=== PATIENT | male | born 1950 | race Two or more races ===

== ENCOUNTER 2017-02-04 15:08 | Emergency (ER) | payer MEDICAID ==
[~2017-02-04] VITALS: Ht 172.7 cm; Wt 77.1 kg
[~2017-02-04 15:08] MED LIST: AZITHROMYCIN250 MG ORAL; GUAIFENESIN-CO118 M1 ORAL; NKM; SULFAMETHOXAZO480 ML ORAL
--- NOTE | 2017-02-04 15:53 | Diagnostic Imaging Report ---
Indication: Headache. Code stroke Technique: Contiguous 5 mm thick transaxial imaging of the head obtained in a Siemens Sensation [address] scanner. Soft tissue and bone windows generated. Automatic Exposure Control was utilized. Total Dose length Product (DLP): [address] Dose Index Volume (CTDIvol): 70.38, 0.15 mGy Comparison: none Findings: The ventricles are moderately dilated. The degree of dilatation is disproportionate to the degree of atrophy present, which is mild. Findings could be related to a more centralized atrophy of the brain. The possibility of normal pressure hydrocephalus or communicating hydrocephalus should be considered. Please correlate clinically. There is no mass effect or edema. There is no evidence of hemorrhage. There is no midline shift. Mild periventricular low-attenuation demonstrated. This may be due to chronic small vessel disease. No abnormal extra-axial collections are identified. Osseous structures are unremarkable. Impression: Possible normal pressure hydrocephalus. Please correlate clinically. Generalized atrophy the brain. The CT scanner at [facility] is accredited by the [employer] and the scans are performed using dose optimization techniques as appropriate to a performed exam including Automatic Exposure control.
[2017-02-04 16:00] VITALS: BP 146/80
[2017-02-04 16:09] LABS: BASOPHILS % (AUTO) 1.9 % (0.0-2.0); EOSINOPHILS % (AUTO) 2.4 % (0.0-3.0); HEMATOCRIT 50.1 % (42.0-52.0); LYMPHOCYTES % (AUTO) 31.6 % (20.0-45.0); MEAN CORPUSCULAR VOLUME 98 FL (80-99); MONOCYTES % (AUTO) 8.7 % (1.0-10.0); NEUTROPHILS % (AUTO) 55.4 % (45.0-75.0); PLATELET COUNT 309 K/UL (150-450); RED BLOOD COUNT 5.11 M/UL (4.70-6.10); RED CELL DISTRIBUTION WIDTH 11.1 % (11.6-14.8); WHITE BLOOD COUNT 8.8 K/UL (4.8-10.8)
[2017-02-04 16:40] LABS: ANION GAP 11 mmol/L (5-15); BLOOD UREA NITROGEN 17 mg/dL (7-18); CALCIUM 9.5 MG/DL (8.5-10.1); CARBON DIOXIDE 28 MMOL/L (21-32); CHLORIDE 101 MMOL/L (98-107); CREATININE 1.2 MG/DL (0.55-1.30); POTASSIUM 4.5 MMOL/L (3.5-5.1); SODIUM 140 MMOL/L (136-145)
[2017-02-04] MEDS ORDERED: Morphine Sulfate 4mg/ml Inj IVP ONE (16:45)
[2017-02-04] MEDS ORDERED: DEXAMETHASONE2 MG PO (17:25)
[2017-02-04 17:47] VITALS: BP_SYST 120; BP_SYST 146; BP_DIAS 65; BP_DIAS 80
[2017-02-04 17:50] VITALS: BP 120/65
--- NOTE | 2017-02-04 23:15 | Emergency Room Report ---
History of Present Illness General Chief Complaint: Headache Source: Patient Present Illness HPI Patient is a a 66-year-old male who presented after increased headache. The patient had a gradual onset of symptoms the past 2-3 days. Patient reported having increased difficulty with ambulation. He reportedly had prior history of a neck tumor associated with some hydrocephalus. He had prior surgical resection of tumor. Patient denied any fever. He denied any weakness to his extremities. Allergies: Uncoded Allergies: IV CONTRAST (Allergy, Anaphylaxis, 03/09/13) Patient History Past Medical History: see triage record Reviewed Nursing Documentation: PMH: Agreed, PSxH: Agreed Nursing Documentation-PM Past Medical History: No Stated History Hx Hypertension: Yes Hx Asthma: Yes Hx Diabetes: Yes Hx Cancer: No Hx Gastrointestinal Problems: No - BPH Hx Neurological Problems: Yes - HEADACHES Review of Systems All Other Systems: negative except mentioned in HPI Physical Exam Vital Signs Date Time Temp Pulse Resp B/P (MAP) Pulse Ox O2 Delivery O2 Flow Rate FiO2 02/04/17 15:14 97.5 86 16 131/87 98 Room Air Sp02 EP Interpretation: reviewed, normal General Appearance: normal inspection, well appearing, no apparent distress, alert, GCS 15, non-toxic Head: atraumatic ENT: normal ENT inspection, hearing grossly normal, normal voice Neck: normal inspection, full range of motion, supple, no bony tend Respiratory: normal inspection, lungs clear, normal breath sounds, no respiratory distress, no retraction, no wheezing Cardiovascular #1: regular rate, rhythm, no edema Gastrointestinal: normal inspection, normal bowel sounds, non tender, soft, no guarding, no hernia Genitourinary: no CVA tenderness Musculoskeletal: normal inspection, back normal, normal range of motion Neurologic: normal inspection, alert, oriented x3, responsive, 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 Differential diagnoses included but was not limited to skull fracture, subarachnoid hemorrhage, meningitis, aneurysm, mass lesion, intracranial hemorrhage.Because of complexity of patient's case laboratory testing and imaging studies were ordered. CT imaging of the head read by radiology showed hydrocephalus. Patient was given IV medications for headache. Patient was advised followup with his neurosurgeon for comparison of CT images The patient is advised to follow up with primary care doctor in 1-2 days. Patient is advised to return if any worsening condition or if any changes in status that are concerning. Labs Test 02/04/17 15:30 White Blood Count 8.8 K/UL (4.8-10.8) Red Blood Count 5.11 M/UL (4.70-6.10) Hemoglobin 16.0 G/DL (14.2-18.0) Hematocrit 50.1 % (42.0-52.0) Mean Corpuscular Volume 98 FL (80-99) Mean Corpuscular Hemoglobin 31.4 PG (27.0-31.0) Mean Corpuscular Hemoglobin Concent 32.0 G/DL (32.0-36.0) Red Cell Distribution Width 11.1 % (11.6-14.8) Platelet Count 309 K/UL (150-450) Mean Platelet Volume 9.0 FL (6.5-10.1) Neutrophils (%) (Auto) 55.4 % (45.0-75.0) Lymphocytes (%) (Auto) 31.6 % (20.0-45.0) Monocytes (%) (Auto) 8.7 % (1.0-10.0) Eosinophils (%) (Auto) 2.4 % (0.0-3.0) Basophils (%) (Auto) 1.9 % (0.0-2.0) Sodium Level 140 MMOL/L (136-145) Potassium Level 4.5 MMOL/L (3.5-5.1) Chloride Level 101 MMOL/L (98-107) Carbon Dioxide Level 28 MMOL/L (21-32) Anion Gap 11 mmol/L (5-15) Blood Urea Nitrogen 17 mg/dL (7-18) Creatinine 1.2 MG/DL (0.55-1.30) Estimat Glomerular Filtration Rate > 60 mL/min (>60) Glucose Level 124 MG/DL (74-106) Calcium Level 9.5 MG/DL (8.5-10.1) Last Vital Signs Date Time Temp Pulse Resp B/P (MAP) Pulse Ox O2 Delivery O2 Flow Rate FiO2 02/04/17 17:50 97.5 68 18 120/65 98 Room Air Status: improved Disposition: HOME, SELF-CARE Condition: Stable Scripts Dexamethasone* (DECADRON*) 2 Mg Tablet 4 MG PO DAILY, #4 TAB Prov: Sharif Hitchcock 02/04/17 Patient Instructions: Headache and Arthritis Additional Instructions: CT shows hydrocephalus. Follow up with your Neurosurgeon for recheck in 1-2 days. Return if any worsening. Sharif Hitchcock Feb 04, 2017 23:15
== END 2017-02-04 17:51 | disposition home or self-care (01) ==
LOC: EMR 15:52
DX: G91.9 Hydrocephalus, unspecified (principal); G31.9 Degenerative disease of nervous system, unspecified; E11.9 Type 2 diabetes mellitus without complications; J45.909 Unspecified asthma, uncomplicated; D49.2 Neoplasm of unspecified behavior of bone, soft tissue, and skin; I10 Essential (primary) hypertension; R51 Headache; Z91.041 Radiographic dye allergy status
CPT/HCPCS: 36415; 70450; 80048; 85025; 96374; 96375; 99284; J0780; J2270

== ENCOUNTER 2017-09-24 14:06 | Emergency (ER) | payer MEDICAID, MEDICARE ==
[~2017-09-24] VITALS: Ht 170.2 cm; Wt 72.6 kg
[~2017-09-24 14:06] MED LIST changes: +DEXAMETHASONE2 MG PO
[2017-09-24] MEDS ORDERED: METFORMIN HCL1000 M1 ORAL (14:23)
[2017-09-24 14:26] VITALS: BP 131/81
[2017-09-24] MEDS ORDERED: Ketorolac 60mg Inj IM ONE (14:30)
[2017-09-24] MEDS ORDERED: LIDOCAINE700 M1 TP (14:31)
[2017-09-24] MEDS ORDERED: ROBAXIN-750750 MG PO (14:31)
--- NOTE | 2017-09-24 14:45 | Emergency Room Report ---
History of Present Illness General Chief Complaint: Lower Back Pain or Injury Source: Patient, Medical Record Present Illness HPI Patient is a 67-year-old male who presented after increased low back pain. Patient reports having increased pain after attempting to bend forward and subsequently standing up. The patient had previous history of intermittent low back pain. He had last exacerbation several years ago. The patient had not been having any fever or vomiting. He denies any dysuria. He denies any leg pain or numbness.The patient previous CT imaging at this facility and was noted to have previous diagnoses of L5 spondylolysis. The patient was having increased sharp pain. This is reportedly worse with extension. Allergies: Uncoded Allergies: IV CONTRAST (Allergy, Anaphylaxis, 03/09/13) Patient History Past Medical History: see triage record Reviewed Nursing Documentation: PMH: Agreed; PSxH: Agreed Nursing Documentation-PMH Past Medical History: No History, Except For Hx Cardiac Problems: No Hx Hypertension: Yes Hx Pacemaker: No Hx Asthma: Yes Hx COPD: No Hx Diabetes: Yes Hx Cancer: No Hx Gastrointestinal Problems: No - BPH Hx Dialysis: No History Of Psychiatric Problem: No Hx Neurological Problems: Yes - HEADACHES Hx Cerebrovascular Accident: No Hx Seizures: No Review of Systems All Other Systems: negative except mentioned in HPI Physical Exam Vital Signs Date Time Temp Pulse Resp B/P (MAP) Pulse Ox O2 Delivery O2 Flow Rate FiO2 09/24/17 14:18 97.7 78 16 131/81 98 Room Air 97.7 Sp02 EP Interpretation: reviewed, normal General Appearance: normal inspection, well appearing, no apparent distress, alert, GCS 15, Chronically Ill Head: atraumatic ENT: normal ENT inspection, hearing grossly normal, normal voice Neck: normal inspection, full range of motion, supple, no bony tend Respiratory: normal inspection, lungs clear, normal breath sounds, no respiratory distress, no retraction, no wheezing Cardiovascular #1: regular rate, rhythm, no edema Gastrointestinal: normal inspection, normal bowel sounds, non tender, soft, no guarding, no hernia Genitourinary: no CVA tenderness Musculoskeletal: normal inspection, back normal, decreased range of motion - of back, other - negative straight leg raise bilaterally, Neurologic: normal inspection, alert, oriented x3, responsive, 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 Differential diagnosis included but was not limited to herniated disc, cauda equina syndrome, abdominal aortic aneurysm , perforated ulcer, spinal epidural abscess, spinal stenosis, lumbar fracture, metastatic lesion, pyelonephritis. Patient's back pain appears to be related to chronic spondylolysis of L5. The patient was given prescriptions for medications.The patient was given lidocaine patch. He is given injection for Toradol for pain. The patient is advised to follow-up for reexamination and treatment. At the time of discharge patient was ambulatory. Patient is advised to return for worsening pain increased difficulty with urination or other concerns Last Vital Signs Date Time Temp Pulse Resp B/P (MAP) Pulse Ox O2 Delivery O2 Flow Rate FiO2 09/24/17 14:37 97.7 09/24/17 14:18 78 16 131/81 98 Room Air Status: improved Disposition: HOME, SELF-CARE Condition: Stable Scripts Lidocaine (Lidocaine) 1 Each Adh..patch 5 % TP DAILY for pain, #30 PATCH Prov: Sharif Hitchcock MD 09/24/17 Methocarbamol* (ROBAXIN-750*) 750 Mg Tablet 750 MG PO TID, #21 TAB 0 Refills Prov: Sharif Hitchcock MD 09/24/17 Referrals: NOT CHOSEN IPA/,REFERRING (PCP) Patient Instructions: Spondylolysis With [facility] Sharif Hitchcock MD Sep 24, 2017 14:45
[2017-09-24 14:48] VITALS: BP 131/81
== END 2017-09-24 14:48 | disposition home or self-care (01) ==
LOC: EMR 14:39
DX: M47.896 Other spondylosis, lumbar region (principal); I10 Essential (primary) hypertension; J45.909 Unspecified asthma, uncomplicated; R51 Headache
CPT/HCPCS: 96372; 99284

== ENCOUNTER 2018-02-24 00:27 | Inpatient (IN) | payer MEDICARE, MEDICAID ==
[2018-02-24] VITALS (8 sets, daily range): BP systolic 87–131; BP diastolic 58–77
[~2018-02-24] VITALS: Ht 162.6 cm; Wt 81.6 kg
[~2018-02-24 00:27] MED LIST changes: +LIDOCAINE700 M1 TP; +METFORMIN HCL1000 M1 ORAL; +ROBAXIN-750750 MG PO
[2018-02-24] MEDS ORDERED: Ketorolac 30mg Inj IV ONE (01:00)
[2018-02-24 01:27] LABS: BILIRUBIN, URINE NEGATIVE (NEGATIVE); GLUCOSE, URINE (UA) NEGATIVE (NEGATIVE); KETONES,URINE 1+ (NEGATIVE); LEUKOCYTE ESTERASE ,URINE 2+ (NEGATIVE); NITRITE,URINE NEGATIVE (NEGATIVE); PH,URINE 5 (4.5-8.0); PROTEIN,URINE 3+ (NEGATIVE); UROBILINOGEN,URINE 1 MG/DL (0.0-1.0)
[2018-02-24 01:36] LABS: ANION GAP 12 mmol/L (5-15); BLOOD UREA NITROGEN 28 mg/dL (7-18); CALCIUM 8.9 MG/DL (8.5-10.1); CARBON DIOXIDE 22 MMOL/L (21-32); CHLORIDE 96 MMOL/L (98-107); CREATININE 1.5 MG/DL (0.55-1.30); POTASSIUM 4.1 MMOL/L (3.5-5.1); SODIUM 130 MMOL/L (136-145)
[2018-02-24 01:37] LABS: APPEARANCE,URINE SLIGHTLY CLOUDY; COLOR,URINE YELLOW
[2018-02-24 01:38] LABS: HEMATOCRIT 44.1 % (42.0-52.0); HEMOGLOBIN 15.9 G/DL (14.2-18.0); MEAN CORPUSCULAR VOLUME 89 FL (80-99); PLATELET COUNT 170 K/UL (150-450); RED BLOOD COUNT 4.94 M/UL (4.70-6.10); RED CELL DISTRIBUTION WIDTH 10.4 % (11.6-14.8); WHITE BLOOD COUNT 9.3 K/UL (4.8-10.8)
[2018-02-24 01:53] LABS: ALANINE AMINOTRANSFERASE 75 U/L (12-78); ALBUMIN 3.3 G/DL (3.4-5.0); ALBUMIN/GLOBULIN RATIO 0.8 (1.0-2.7); ALKALINE PHOSPHATASE 78 U/L (46-116); ASPARTATE AMINO TRANSFERASE 60 U/L (15-37); BILIRUBIN,TOTAL 1.2 MG/DL (0.2-1.0); CREATINE KINASE 47 U/L (26-308)
[2018-02-24 01:57] LABS: BILIRUBIN,DIRECT 0.3 MG/DL (0.0-0.3)
[2018-02-24] MEDS ORDERED: cefTRIAXone 1 GM in NS 55 ML IVPB ONE (02:00)
[2018-02-24] MEDS ORDERED: Azithromycin 500 MG in NS 275 ML IV ONE (02:30)
--- NOTE | 2018-02-24 03:39 | Emergency Room Report ---
History of Present Illness General Chief Complaint: Generalized Weakness Source: Patient Present Illness HPI 67-year-old male presents ED for evaluation. Patient brought in by for body aches, chills 1 day. Patient is febrile at triage. No generalized bodyaches. Dull, 8 out of 10. Also complaining of cough which is nonproductive. States pain with deep breaths. Also complaining of increased urination and unable to hold his bladder. Denies flank pain. Denies nausea or vomiting. Did not receive flu shot this year. No other aggravating relieving factors. Denies any other associated symptoms Allergies: Uncoded Allergies: IV CONTRAST (Allergy, Anaphylaxis, 03/09/13) Patient History Past Medical History: DM, HTN Past Surgical History: none Pertinent Family History: none Social History: Denies: smoking, alcohol use, drug use Immunizations: UTD Reviewed Nursing Documentation: PMH: Agreed; PSxH: Agreed Nursing Documentation-PMH Hx Cardiac Problems: No Hx Hypertension: Yes Hx Pacemaker: No Hx Asthma: No Hx COPD: No Hx Diabetes: Yes Hx Cancer: No Hx Gastrointestinal Problems: No - BPH Hx Dialysis: No Hx Neurological Problems: No - HEADACHES Hx Cerebrovascular Accident: No Hx Seizures: No Review of Systems All Other Systems: negative except mentioned in HPI Physical Exam Vital Signs Date Time Temp Pulse Resp B/P (MAP) Pulse Ox O2 Delivery O2 Flow Rate FiO2 02/24/18 00:32 101.3 120 18 110/68 96 Room Air Sp02 EP Interpretation: reviewed, normal General Appearance: no apparent distress, alert, GCS 15, non-toxic Head: normocephalic Eyes: bilateral eye normal inspection, bilateral eye PERRL ENT: normal ENT inspection Neck: normal inspection Respiratory: chest non-tender, lungs clear, normal breath sounds, speaking full sentences Cardiovascular #1: regular rate, rhythm, no edema Gastrointestinal: normal bowel sounds, non tender, soft, non-distended, no guarding, no rebound Rectal: deferred Genitourinary: no CVA tenderness Musculoskeletal: normal inspection Neurologic: alert, oriented x3, responsive, motor strength/tone normal, sensory intact, speech normal Psychiatric: normal inspection Skin: normal inspection Lymphatic: normal inspection Procedures Critical Care Time Critical Care Time i. I feel this is a highly complex case requiring extensive working including EKG/Rhythm strip, Xray/CT/US, Blood/urine lab work, repeat exams while in ED, and administration of strong opiates/narcotics for pain control, admission to hospital or close patient follow up. Total time: 30 min bedside evaluation and treatment excludes procedures (EKG). Reason for critical care: tachycardia, febrile, sepsis Possible complications: hypotension, hypertension, SC, shock, arrhythmias, metabolic acidosis, end organ damage, respiratory failure. Interventions: labs, IVFs, EKG, CXR, flu swab, toradol, IVFs, broad spectrum abx Course: Patient presenting with fever, body aches. Tachycardic and febrile. Given Toradol IV fluids. Labs show elevated lactate, UA grossly positive. Flu swab negative. Troponins 0.039. EKG shows sinus tachycardia no acute ischemic changes. Chest x-ray shows no obvious infiltrate. Tachycardia improved after 30 mL per KG fluid bolus Consultations: nursing staff, EMS, family Performed by: Dr Bryan Tolerated well condition = serious j. because of unstable vital signs this patient had a condition that could potentially threaten life or limb. I feel this is a critical patient who required my full attention while patient was considered critical. Total Critical Care Time excluding procedures was greater than 35 minutes Medical Decision Making Diagnostic Impression: Primary Impression: Urinary tract infection Qualified Codes: N39.0 - Urinary tract infection, site not specified Additional Impressions: Episode of generalized weakness Sepsis Qualified Codes: A41.9 - Sepsis, unspecified organism ER Course Hospital Course 67-year-old male presenting to ED with generalized weakness, fever, bodyaches Differential diagnoses include: Pneumonia, UTI, sepsis, dehydration, SC/ unstable angina Clinical course Patient placed on stretcher. On personnel monitor with tachycardia. After initial history and physical, I ordered labs, IV fluids, EKG, chest x-ray, blood cultures, UA. Labs - electrolytes ok, no leukocytosis, troponins negative, lactate > 2, flu swab negative, UA grossly positive for UTI EKG - sinus tachycardia, no aute ischemic changes interpreted by me CXR - no acute process Abx given. given 30cc/kg fluid bolus. Tachycardia resolved after Toradol and IV fluids. Given aspirin Case discussed with Dr Gabriel and they agreed to admit patient to their service for further care and support I feel this is a highly complex case requiring extensive working including EKG/ Rhythm strip, Xray/CT/US, Blood/urine lab work, repeat exams while in ED, and administration of strong opiates/narcotics for pain control, admission to hospital or close patient follow up. Diagnosis - UTI, generalized weakness, sepsis Patient admitted to telemetry in serious condition Labs Test 02/24/18 00:50 02/24/18 02:00 White Blood Count 9.3 K/UL (4.8-10.8) Red Blood Count 4.94 M/UL (4.70-6.10) Hemoglobin 15.9 G/DL (14.2-18.0) Hematocrit 44.1 % (42.0-52.0) Mean Corpuscular Volume 89 FL (80-99) Mean Corpuscular Hemoglobin 32.1 PG (27.0-31.0) Mean Corpuscular Hemoglobin Concent 36.0 G/DL (32.0-36.0) Red Cell Distribution Width 10.4 % (11.6-14.8) Platelet Count 170 K/UL (150-450) Mean Platelet Volume 8.4 FL (6.5-10.1) Neutrophils (%) (Auto) % (45.0-75.0) Lymphocytes (%) (Auto) % (20.0-45.0) Monocytes (%) (Auto) % (1.0-10.0) Eosinophils (%) (Auto) % (0.0-3.0) Basophils (%) (Auto) % (0.0-2.0) Urine Color Yellow Urine Appearance Slightly cloudy Urine pH 5 (4.5-8.0) Urine Specific [place] 1.020 (1.005-1.035) Urine Protein 3+ (NEGATIVE) Urine Glucose (UA) Negative (NEGATIVE) Urine Ketones 1+ (NEGATIVE) Urine Blood 1+ (NEGATIVE) Urine Nitrite Negative (NEGATIVE) Urine Bilirubin Negative (NEGATIVE) Urine Urobilinogen 1 MG/DL (0.0-1.0) Urine Leukocyte Esterase 2+ (NEGATIVE) Urine RBC 2-4 /HPF (0 - 0) Urine WBC 15-20 /HPF (0 - 0) Urine Squamous Epithelial Cells Few /LPF (NONE/OCC) Urine Amorphous Sediment Many /LPF (NONE) Urine Bacteria Moderate /HPF (NONE) Urine Coarse Granular Casts 2-4 /LPF (NONE) Sodium Level 130 MMOL/L (136-145) Potassium Level 4.1 MMOL/L (3.5-5.1) Chloride Level 96 MMOL/L (98-107) Carbon Dioxide Level 22 MMOL/L (21-32) Anion Gap 12 mmol/L (5-15) Blood Urea Nitrogen 28 mg/dL (7-18) Creatinine 1.5 MG/DL (0.55-1.30) Estimat Glomerular Filtration Rate 47.0 mL/min (>60) Glucose Level 186 MG/DL (74-106) Lactic Acid Level 2.40 mmol/L (0.4-2.0) 1.30 mmol/L (0.66-2.22) Calcium Level 8.9 MG/DL (8.5-10.1) Total Bilirubin 1.2 MG/DL (0.2-1.0) Direct Bilirubin 0.3 MG/DL (0.0-0.3) Aspartate Amino Transf (AST/SGOT) 60 U/L (15-37) Alanine Aminotransferase (ALT/SGPT) 75 U/L (12-78) Alkaline Phosphatase 78 U/L (46-116) Total Creatine Kinase 47 U/L (26-308) Creatine Kinase MB 1.0 NG/ML (0.0-3.6) Creatine Kinase MB Relative Index 2.1 Troponin I 0.039 ng/mL (0.000-0.056) Total Protein 7.5 G/DL (6.4-8.2) Albumin 3.3 G/DL (3.4-5.0) Globulin 4.2 g/dL Albumin/Globulin Ratio 0.8 (1.0-2.7) EKG Diagnostic Results Rate: tachycardiac Rhythm: NSR ST Segments: no acute changes ASA given to the pt in ED: Yes Rhythm Strip Diag. Results EP Interpretation: yes Rhythm: NSR, no PVC's, no ectopy Chest X-Ray Diagnostic Results Chest X-Ray Diagnostic Results : Chest X-Ray Ordered: Yes # of Views/Limited/Complete: 1 View Indication: Other - cough EP Interpretation: Yes Interpretation: no consolidation, no effusion, no pneumothorax, no acute cardiopulmonary disease Impression: No acute disease Electronically Signed by: Electronically signed by Eliu Bryan MD Last Vital Signs Date Time Temp Pulse Resp B/P (MAP) Pulse Ox O2 Delivery O2 Flow Rate FiO2 02/24/18 01:19 90 18 Room Air 02/24/18 00:40 101.7 127/77 97 Status: improved Disposition: ADMITTED INPATIENT Condition: Serious Referrals: FERNANDO CRUZ (PCP) Eliu Bryan MD Feb 24, 2018 03:39
[2018-02-24] MEDS ORDERED: Bactrim Susp 20ml ORAL SCH (09:00)
[2018-02-24] MEDS ORDERED: Methocarbamol 750mg tab ORAL SCH (09:00)
[2018-02-24] MEDS: Heparin 5000 units/ml inj SUBQ SCH ×2 (10:12→21:20)
[2018-02-24] MEDS: metFORMIN 500mg tab ORAL SCH ×2 (10:13→17:08)
[2018-02-24] MEDS: Azithromycin 250mg tab ORAL SCH (10:13)
--- NOTE | 2018-02-24 10:40 | Diagnostic Imaging Report ---
Indication: Cough Technique: One view of the chest Comparison: 10/19/2014 Findings: Suboptimal inspiration. The heart is upper limits normal in size. Lungs and pleural spaces are clear. No significant interim change Impression: Negative
[2018-02-24] MEDS: NovoLOG Insulin Flexpen SUBQ SCH ×3 (11:51→21:21)
[2018-02-24 12:13] LABS: CKMB 0.9 NG/ML (0.0-3.6)
[2018-02-24] MEDS: Methocarbamol 750mg tab ORAL SCH (17:08)
[2018-02-24 19:13] LABS: ALANINE AMINOTRANSFERASE 73 U/L (12-78); ALBUMIN 2.8 G/DL (3.4-5.0); ALBUMIN/GLOBULIN RATIO 0.9 (1.0-2.7); ALKALINE PHOSPHATASE 66 U/L (46-116); ANION GAP 10 mmol/L (5-15); ASPARTATE AMINO TRANSFERASE 35 U/L (15-37); BLOOD UREA NITROGEN 30 mg/dL (7-18); CALCIUM 7.8 MG/DL (8.5-10.1); CARBON DIOXIDE 23 MMOL/L (21-32); CHLORIDE 98 MMOL/L (98-107); CREATININE 1.4 MG/DL (0.55-1.30); POTASSIUM 4.4 MMOL/L (3.5-5.1); SODIUM 131 MMOL/L (136-145)
[2018-02-24] MEDS: Albuterol/Ipratropium 3ml neb HHN SCH ×2 (19:26→22:40)
[2018-02-24] MEDS ORDERED: Cefepime HCl 1 GM in D5W 55 ML IVPB SCH (21:00)
[2018-02-24] MEDS: Promethazine/Codeine 5ml UD ORAL PRN (22:02)
[2018-02-24] MEDS ORDERED: Tubing IV Secondary IV ONE (22:34)
[2018-02-24] MEDS ORDERED: Zolpidem 5mg tab ORAL PRN (23:45)
[2018-02-25] VITALS: BP 110/57
--- NOTE | 2018-02-25 00:30 | Consultation ---
DATE OF CONSULTATION: 02/24/2018 CARDIOLOGY CONSULTATION CONSULTING PHYSICIAN: Claudio Gabriel M.D. REFERRING PHYSICIAN: Michael Ruiz M.D. REASON FOR CONSULTATION: Elevated troponin level. HISTORY OF PRESENT ILLNESS: This 67-year-old male came to the emergency room for evaluation of chills, fevers, and body aches for one day's duration. He has been coughing and congested as well. He does have a history of "enlarged prostate" and has urine infections from time to time. His cough has been nonproductive. His chest pain is associated with deep inspiration. He has had difficulty holding his urine. In the emergency room, a workup was obtained. Concerns were raised over fever, tachycardia, abnormal laboratory studies and subsequent troponin elevations that prompted this consultation. MEDICATIONS: Prior to admission, reviewed and reconciled. ALLERGIES: IV contrast. PAST MEDICAL HISTORY: Hypertension, type 2 diabetes mellitus, asthma, history of cervical spine tumor, normal-pressure hydrocephalus, prostatic hypertrophy, and chronic headaches. FAMILY HISTORY: Noncontributory. REVIEW OF SYSTEMS: A 10-point review of systems performed. All systems negative other than noted above. PHYSICAL EXAMINATION: VITAL SIGNS: Temperature 101.3, blood pressure 110/68, heart rate 120, and respiratory rate 18. GENERAL: Nontoxic. SKIN: Intact. HEENT: Conjunctivae pink. Sclerae are anicteric. Oropharynx clear. Mucous membranes dry. NECK: Supple. Jugular venous pressure difficult to assess due to obese neck. LUNGS: Coarse breath sounds. Few rhonchi. No wheezing or rales. CARDIAC: Regular rhythm and rate. Normal S1, S2 with a fourth heart sound. ABDOMEN: Soft and nontender. EXTREMITIES: Good pulses. No edema. NEUROLOGIC: Gait is ataxic, otherwise nonfocal. LABORATORY DATA: White count 9.3, hemoglobin 15.9. Urinalysis with 15 to 20 white cells and moderate bacteria. Sodium 130, potassium 4.1, chloride 96, bicarb 22, BUN 28, and creatinine 1.5. Lactic acid 2.4. Albumin 3.3. Troponin 1 0.039, troponin 2 0.064. EKG sinus rhythm with nonspecific ST-T wave changes. IMPRESSION: 1. Probable sepsis. 2. Urinary tract infection. 3. Acute bronchitis. 4. Acute myocardial ischemia. 5. Lactic acidosis. 6. Normal pressure hydrocephalus. 7. Type 2 diabetes mellitus. 8. Hyponatremia, hypovolemia. 9. Acute on chronic kidney injury. 10. Hypomagnesemia. PLAN: 1. Cardiac monitoring. 2. Saline hydration. 3. Serial troponins. 4. Broad-spectrum empiric antibiotics. 5. Respiratory hygiene. 6. Antiplatelet therapy. 7. Hold beta hugo. 8. May need to hold metformin for further rise in renal parameters. 9. We will follow closely and further recommendations to be given. 10. IV magnesium replacement. 11. Also continue maintenance dose steroids. Claudio Gabriel M.D. DR: CARMENCITA JOB#: [id number] CC:
[2018-02-25] MEDS: Albuterol/Ipratropium 3ml neb HHN SCH ×3 (03:00→07:54)
[2018-02-25] MEDS: Promethazine/Codeine 5ml UD ORAL PRN (03:01)
[2018-02-25 04:00] VITALS: BP 106/64
[2018-02-25] MEDS: NovoLOG Insulin Flexpen SUBQ SCH (06:05)
[2018-02-25 08:00] VITALS: BP 112/73
[2018-02-25 08:25] LABS: EOSINOPHILS % (AUTO) 0.4 % (0.0-3.0); HEMATOCRIT 35.8 % (42.0-52.0); HEMOGLOBIN 12.6 G/DL (14.2-18.0); LYMPHOCYTES % (AUTO) 8.1 % (20.0-45.0); MEAN CORPUSCULAR VOLUME 90 FL (80-99); MONOCYTES % (AUTO) 11.5 % (1.0-10.0); PLATELET COUNT 162 K/UL (150-450); RED BLOOD COUNT 3.99 M/UL (4.70-6.10); RED CELL DISTRIBUTION WIDTH 10.5 % (11.6-14.8); WHITE BLOOD COUNT 6.1 K/UL (4.8-10.8)
[2018-02-25] MEDS: Azithromycin 250mg tab ORAL SCH (08:35)
[2018-02-25] MEDS: metFORMIN 500mg tab ORAL SCH (08:35)
[2018-02-25] MEDS: Methocarbamol 750mg tab ORAL SCH (08:35)
[2018-02-25] MEDS: Heparin 5000 units/ml inj SUBQ SCH (08:36)
[2018-02-25] MEDS ORDERED: Aspirin EC 81mg tab ORAL SCH (09:00)
[2018-02-25] MEDS ORDERED: Cefepime HCl 1 GM in D5W 55 ML IVPB SCH (09:00)
[2018-02-25 09:15] LABS: ALANINE AMINOTRANSFERASE 59 U/L (12-78); ALBUMIN 2.8 G/DL (3.4-5.0); ALBUMIN/GLOBULIN RATIO 0.9 (1.0-2.7); ALKALINE PHOSPHATASE 60 U/L (46-116); ANION GAP 12 mmol/L (5-15); ASPARTATE AMINO TRANSFERASE 26 U/L (15-37); BILIRUBIN,TOTAL 1.1 MG/DL (0.2-1.0); BLOOD UREA NITROGEN 25 mg/dL (7-18); CALCIUM 7.6 MG/DL (8.5-10.1); CARBON DIOXIDE 21 MMOL/L (21-32); CHLORIDE 97 MMOL/L (98-107); CHOLESTEROL 118 MG/DL (< 200); CREATININE 1.5 MG/DL (0.55-1.30); HDL CHOLESTEROL 16 MG/DL (40-60); SODIUM 130 MMOL/L (136-145); TRIGLYCERIDES 192 MG/DL (30-150)
[2018-02-25 09:17] LABS: BILIRUBIN,DIRECT 0.3 MG/DL (0.0-0.3)
--- NOTE | 2018-02-25 10:45 | History and Physical Report ---
DATE OF ADMISSION: 02/24/2018 CHIEF COMPLAINT: Fevers, congestion, and altered mental status. HISTORY OF PRESENT ILLNESS: The patient is a 67-year-old male. He has history of hypertensive heart disease and diabetes. He has history of hydrocephalus and cervical spine tumor, who presented from home with complaints of generalized malaise, weakness, subjective fevers and chills, cough, and congestion. According to the patient's , he has been slightly confused. He apparently had a fall last night. He has a chronic headache. He does have a history of hydrocephalus that has been treated with . The patient denies any dysuria. No diarrhea. He has had no ill contacts. On evaluation in the emergency room, the patient had a UA with evidence of a possible urinary tract infection. He also had an elevated troponin. He denies any chest pain. The patient in the ER was cultured. Antibiotics were instituted. The patient is now admitted for further evaluation and care. PAST MEDICAL HISTORY: As above. PAST SURGICAL HISTORY: None. CURRENT MEDICATIONS: Reconciled and reviewed. ALLERGIES: Include contrast. FAMILY HISTORY: Noncontributory. SOCIAL HISTORY: There is no known history of tobacco, ethanol, or drugs. REVIEW OF SYSTEMS: GENERAL: Positive fevers and subjective chills, but no night sweats. HEENT: No headaches or visual changes. CARDIOPULMONARY: No chest pain or shortness of breath. GASTROINTESTINAL: No nausea or vomiting. GENITOURINARY: No urgency or frequency. MUSCULOSKELETAL: No joint pain or swelling. NEUROLOGIC: No evidence of seizures. PHYSICAL EXAMINATION: VITAL SIGNS: Temperature 100.2 degrees, pulse 96, respirations 20, and blood pressure is 106/64. GENERAL: The patient is well-developed male, in no apparent distress. He is awake, alert, and oriented x4. NECK: Supple. . There is no adenopathy. HEART: Regular rate and rhythm. LUNGS: Clear. ABDOMEN: Soft, nontender, and nondistended. EXTREMITIES: Without clubbing, cyanosis, or edema. LABORATORY AND IMAGING DATA: Troponin 0.064. Sodium 131, potassium 4.4, BUN 30, and creatinine 1.4. White count was 9.3. UA showed 15 to 20 wbc's. Chest x-ray was clear. Influenza screen was negative. ASSESSMENT: This is a pleasant male with complaints of fevers, possibly secondary to bronchitis, and urinary tract infection. He had elevated troponin, significance of which is unclear. 1. Bronchitis. 2. Urinary tract infection. 3. Fevers, rule out sepsis. 4. Toxic metabolic encephalopathy. 5. History of hydrocephalus. 6. Possible acute coronary syndrome. PLAN: IV antibiotics and antiplatelet therapy. Follow up pending cultures. Gentle hydration. Consider ID evaluation. Cardiology consultation has been obtained. Plan of care was discussed with the patient and the family at the bedside. Michael Ruiz M.D. DR: QING JOB#: [id number] CC:
--- NOTE | 2018-02-25 14:37 | Cardiology Report ---
APPROVED REPORT EXAM: Two-dimensional and M-mode echocardiogram with Doppler and color Doppler. INDICATION CAD M-Mode DIMENSIONS IVSd1.3 (0.7-1.1cm)Left Atrium (MM)3.6 (1.6-4.0cm) LVDd3.8 (3.5-5.6cm)Aortic Root4.0 (2.0-3.7cm) PWd1.4 (0.7-1.1cm)Aortic Cusp Exc.1.8 (1.5-2.0cm) LVDs2.5 (2.5-4.0cm) PWs1.7 cm Technically difficult study due to poor acoustical windows and body habitus. Normal left ventricular chamber size. Mild global left ventricular hypokinesis to extent visualized. Left ventricular ejection fraction grossly estimated to be 45-50 %. Study quality precludes accurate assessment of regional wall motion. Borderline mild left ventricular hypertrophy. No evidence of pericardial effusion. All other cardiac chamber sizes are within normal limits. Mild focal aortic valve sclerosis with adequate cusp excursion. Mildly thickened mitral valve leaflets with normal excursion. Mitral annulus and aortic root calcification. Aortic root dilatation. Pulmonic valve not well visualized. Normal tricuspid valve structure. IVC measured at 2.5 cm with slight physiologic collapse suggestive of elevated RA pressure. A color flow and spectral Doppler study was performed and revealed: Trace mitral regurgitation. Mitral diastolic velocities suggest reduced left ventricular relaxation c/w mild LV diastolic dysfunction (Grade I). Trace tricuspid regurgitation. Tricuspid systolic velocities suggests peak right ventricular systolic pressure of 19 mmHg.
--- NOTE | 2018-02-25 14:51 | Cardiology Report ---
APPROVED REPORT EKG Measurement Heart [id number] Sinus tachycardia Otherwise normal ECG
--- NOTE | 2018-02-26 00:15 | Progress Note ---
DATE: 02/25/2018 CARDIOLOGY PROGRESS NOTE SUBJECTIVE: The patient has no chest pain. He has less cough, but is still congested. He denies dysuria or abdominal pain. The patient is not happy with his room here. He was used to a single room at [facility] as well as the kosher diet of more substance than available here. He wishes to transfer to [facility] for completion of care. Dr. Ruiz has placed him on the transfer list. He was made aware that it may take some time for a bed to be obtained for him. OBJECTIVE: VITAL SIGNS: T-max 101.2 degrees, blood pressure 112/73, heart rate 117, respiratory rate 20, and room air oxygen saturation is 96% to 99%. LUNGS: Coarse breath sounds. Few rhonchi. No wheezes. HEART: Regular rhythm. Rapid rate. Normal S1 and S2 with a fourth heart sound. Monitored rhythm, sinus tachycardia. ABDOMEN: Soft and obese with no guarding or rebound. EXTREMITIES: Good pulses. No edema. LABORATORY DATA: White count 6.1 and hemoglobin 12.6. Urine culture reveals strep species of 50,000. Influenza A and B are negative. Sodium is 130, potassium 4, bicarbonate 21, BUN 25, creatinine 1.5, glucose 124. Troponin down to 0.076. Pro-natriuretic peptide 2600. Total cholesterol 118 and triglycerides 192. Echocardiogram revealed mildly depressed ejection fraction of 45% to 50%. IMPRESSION: 1. Persisting fevers. 2. Upper respiratory tract infection. 3. 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 4. Acute myocardial ischemia. 5. Acute on chronic diastolic congestive heart failure. 6. Chronic prostatitis. 7. Chronic kidney disease. 8. Moderate protein-calorie malnutrition. 9. Hypertriglyceridemia. 10. Hyperglycemia. 11. Hyponatremia, maybe due to SIADH. PLAN: 1. Continue cardiac monitoring and antiplatelet therapy as well as cautious beta-blockade. 2. Broad-spectrum antimicrobials. 3. Antipyretics. 4. Repeat x-ray of the chest. 5. Attempt sputum culture. 6. Protein supplement. 7. Monitor volume status and cardiorenal parameters with diuresis as needed. 8. Transfer to [facility] when bed available. Claudio Gabriel M.D. DR: JERILYN JOB#: [id number] CC:
--- NOTE | 2018-02-28 12:54 | Discharge Summary ---
Discharge Summary Discharge Summary _ DATE OF ADMISSION: 02/24/2018 DATE OF DISCHARGE: 02/25/2018. Patient signed AGAINST MEDICAL ADVICE. REASON FOR ADMISSION: 67 years old male with past medical history of hypertensive heart disease , diabetes ,hydrocephalus ,cervical spine tumor, status post treatment , presented to emergency department with complaints of generalized malaise, weakness, subjective fever and chills, cough and congestion. According to patient was also confused. He apparently had a fall last night. Patient reported headaches, but no dysuria, no diarrhea, no chest pain. Upon evaluation in emergency department patient was febrile with temperature 101.3 and tachycardic with heart rate 120. Pulse oximetry was stable on room air. Laboratory workup revealed no leukocytosis, stable hemoglobin and hematocrit. Initial troponin was negative ,and repeated was minimally elevated -0.064. EKG revealed sinus rhythm, no acute ischemic changes. Urinalysis revealed evidence of pyuria, +2 leukocyte esterase ,moderate bacteria and +3 protein. Chest x-ray revealed no acute cardiopulmonary pathology. Patient admitted with diagnoses of bronchitis, urinary tract infection, possible sepsis, toxic metabolic encephalopathy, elevated troponin with possible acute coronary syndrome, history of hydrocephalus. CONSULTANTS: [employer] [facility]: Patient admitted to telemetry floor. Patient was started on empiric antibiotics and initially gentle hydration. Antiplatelet therapy initiated. Cardiology closely followed. Serial troponin were clsoely monitored. Echocardiogram revealed decreased ejection fraction 45-50% with mild global left ventricular hypokinesis to the extent visualized. Mild left ventricular hypertrophy. No evidence of pericardial effusion. Beta blockers were hold due to acute bronchitis/bronchospasm. Magnesium was replaced. Second troponin with trend up to 0.089 t, but the next troponin already trending down 0.067 . Troponin level were flat and minimally elevated, no complaints of chest pain , no ischemic changes on ECG; probably acute myocardial ischemia. Possible troponin leak due to renal failure. Lipid panel revealed elevated triglycerides , and stable cholesterol and LDL. Patient was counseled on low fat , low cholesterol ,cardiac diabetic diet. Patient was continued on antibiotics. Blood culture were negative. Influenza screen test was negative. Urine culture revealed Enterococcus faecalis. Temperature down to 99.9. Supplemetnal oxygen provided as needed to keep pulse oximetry above 92%. Pulmonary toilet with bronchodilators intimated and continued. Pulmonary status was closely monitored. Patient chronically on Decadron due to history of spinal cord tumor. Patient continued to have persistent fever. Antepyretic provided as needed. Sputum culture was ordered , but patient did not provide sample. Antitussive provided as needed. Volumes and cardiorenal parameters were closely monitored with diuresis on as needed basis only. Follow-up chest x-ray was ordered. Protein supplement were added to dietary regimen to improve nutritional status. Blood sugar was managed with current anti-glycemic regimen and remained stable. Consider stop metformin if further increase in creatinine. Noted low Na 130 on admission, no improvement with initial hydration or later on. Patient possibly had SIADH. Outpatient workup for SIADH recommended. Patient was on waiting list for transfer to [facility], when bed become available. Patient decided to leave AGAINST MEDICAL ADVICE The risks and consequences of signing AGAINST MEDICAL ADVICE were discussed with patient in detail. Patient verbalized understanding, nevertheless signed AMA form and left. FINAL DIAGNOSES: Upper respiratory tract infection/bronchitis UTI with Enterococci Acute myocardial ischemia Acute on chronic diastolic congestive heart failure Cardiomyopathy ( with EF 45-50%) Chronic kidney disease Toxic metabolic encephalopathy -resolved Persistent fevers Steroid dependency due to normal pressure hydrocephalus and history of spinal cord tumor Moderate protein calorie malnutrition Hypertriglyceridemia Hyponatremia, possibly due to SIADH. Chronic prostatitis I have been assigned to dictate discharge summary for this account. I was not involved in the patient's management. Kristine Clarke NP Feb 28, 2018 12:54
== END 2018-02-25 09:17 | disposition left against medical advice (07) | DRG 689 ==
LOC: EMR 00:51 → 2E 01:54 → EDBEDREQ 02:29 → 2E 05:56
DX: N39.0 Urinary tract infection, site not specified (principal); I50.33 Acute on chronic diastolic (congestive) heart failure; G92 Toxic encephalopathy; E44.0 Moderate protein-calorie malnutrition; I13.0 Hypertensive heart and chronic kidney disease with heart failure and stage 1 through stage 4 chronic kidney disease, or unspecified chronic kidney disease; G91.2 (Idiopathic) normal pressure hydrocephalus; E22.2 Syndrome of inappropriate secretion of antidiuretic hormone; N17.9 Acute kidney failure, unspecified; J20.9 Acute bronchitis, unspecified; E11.22 Type 2 diabetes mellitus with diabetic chronic kidney disease; J06.9 Acute upper respiratory infection, unspecified; B95.2 Enterococcus as the cause of diseases classified elsewhere; I51.3 Intracardiac thrombosis, not elsewhere classified; N18.9 Chronic kidney disease, unspecified; R50.9 Fever, unspecified; Z79.52 Long term (current) use of systemic steroids; E78.1 Pure hyperglyceridemia; N41.1 Chronic prostatitis; E83.42 Hypomagnesemia; Z91.81 History of falling
CPT/HCPCS: 36415; 71045; 80053; 80061; 81003; 82248; 82550; 82553; 83605; 83735; 83880; 84484; 85025; 86710; 87040; 87086; 87181; 93005; 93306; 94640; 94664; 96361; 96365; 96367; 99291; J1815; J7620